=== PATIENT | male | born 1985 | race Caucasian/White ===

== ENCOUNTER 2021-12-06 20:30 | Emergency (ER) | payer OTHER ==
[~2021-12-06] VITALS: Ht 185.4 cm; Wt 86.2 kg
[~2021-12-06 20:30] MED LIST: ULTRAM50 MG PO
[2021-12-06] MEDS ORDERED: KETOROLAC TROMETHAMINE 60 MG/2 ML VIAL IM ONE (21:00)
[2021-12-06] MEDS ORDERED: AUGMENTIN 500-1 EACH PO (22:06)
[2021-12-06 22:09] VITALS: BP 131/86
[2021-12-06] MEDS ORDERED: ULTRAM 50MG50 MG PO (22:17)
== END 2021-12-06 22:15 | disposition home or self-care (01) ==
LOC: ER 20:48
DX: S81.851A Open bite, right lower leg, initial encounter (principal); W54.0XXA Bitten by dog, initial encounter; Y92.89 Other specified places as the place of occurrence of the external cause
CPT/HCPCS: 73590; 99283; J1885

== ENCOUNTER 2024-05-21 19:10 | Emergency (ER) | payer OTHER ==
[~2024-05-21] VITALS: Ht 185.4 cm; Wt 95.3 kg
[~2024-05-21 19:10] MED LIST changes: +AUGMENTIN 500-1 EACH PO; +ULTRAM 50MG50 MG PO
[2024-05-21 19:51] VITALS: PULSE 83; RESP 16; TEMP 98.6; O2SAT 100
[2024-05-21] MEDS: TETANUS/DIPHTHERIA TOX ADULT 0.5 ML SYR IM ONE (21:10)
[2024-05-21] MEDS ORDERED: DOXYCYCLINE HY100 MG PO (21:17)
[2024-05-21] MEDS ORDERED: HYDROCODON-ACE1 EA12 PO (21:17)
== END 2024-05-21 21:38 | disposition home or self-care (01) ==
LOC: ER 19:20
DX: S92.532B Displaced fracture of distal phalanx of left lesser toe(s), initial encounter for open fracture (principal); Y93.44 Activity, trampolining; Y92.89 Other specified places as the place of occurrence of the external cause; F17.210 Nicotine dependence, cigarettes, uncomplicated
CPT/HCPCS: 90714; 99283